=== PATIENT | female | born 1985 | race Caucasian/White ===

== ENCOUNTER 2022-03-02 21:20 | Inpatient (IN) | payer OTHER, SELFPAY ==
[2022-03-02] VITALS (9 sets, daily range): BP systolic 130–168; BP diastolic 62–85; PULSE 82–111; O2SAT 98; BMI 47.7
[2022-03-02] MEDS: Lactated Ringers 1,000 ML 200 ML IV (21:30)
[2022-03-02 22:07] LABS: Absolute Lymphocyte Count 1.32 X10^3/uL (0.83-4.51); Absolute Neutrophil Count 7.3 X10^3/uL (2.0-7.7); Basophil# 0.03 X10^3/uL; Basophil% 0.3 % (0-1); Eosinophil# 0.01 X10^3/uL; Eosinophils% 0.1 % (0-5); Hematocrit 31.1 % (37-47); Hemoglobin 10.5 g/dL (12.0-15.0); Lymphocyte # 1.32 X10^3/ul (0.83-4.51); Mean Corp Hgb Conc 33.8 g/dL (32-36); Mean Corpuscular Hgb 32.1 pg (27.0-32.0); Mean Corpuscular Volume 95.1 fL (81-99); Mean Platelet Vol. 11.7 fl (6.2-12.0); Monocyte# 0.69 X10^3/uL; Monocyte% 7.3 % (0-10); NRBC Flagged by Analyzer 0 % (0-5); Neutrophil # 7.34 X10^3/uL (2.7-7.7); Neutrophil % 77.6 % (47-70); Platelet Count 216 K/mm3 (150-450); RBC Distribution Width CV 13.5 % (11.6-14.6); RBC Distribution Width SD 46.3 fl (35.1-43.9); Red Blood Count 3.27 M/mm3 (4.2-5.4); White Blood Count 9.5 K/mm3 (4.4-11.0)
[2022-03-02] MEDS: Escitalopram Oxalate 20 MG Tablet PO (22:11)
[2022-03-02 22:37] LABS: AST(SGOT) 17 U/L (15-37); Alanine Aminotransfer ALT/SGPT 22 U/L (13-56); Creatinine, Serum 0.56 mg/dL (0.55-1.02); EST Glomerular Filtration Rate 130 mL/min (>60); Est Glom Filt Rate - Afr Amer 158 mL/min (>60); Estimated Creatinine Clearance 100.72 ml/min; Uric Acid 4.1 mg/dL (2.6-6.0)
[2022-03-03] VITALS (48 sets, daily range): BP systolic 122–166; BP diastolic 58–91; PULSE 75–100; TEMP 36.6–37.6; O2SAT 97–100
[2022-03-03 00:12] LABS: Protein, Urine (Random) 36.2 mg/dL (<11.9); Protein:Creat Ratio 260 mg/g CRE (0-200)
[2022-03-03] MEDS: miSOPROStol 25 MCG TABLET PO ×2 (00:14→04:42)
[2022-03-03] MEDS: Lactated Ringers 1,000 ML 50 ML IV (05:08)
--- NOTE | 2022-03-03 06:08 | NURSING ---
0600 penicillin bag noted to be ripped at top off bag and leaking, current bag stopped and new bag to be sent by pharmacy to run at this time
[2022-03-03] MEDS: Labetalol 100 MG Tablet PO (06:46)
[2022-03-03] MEDS: busPIRone 5 MG Tablet PO (06:46)
--- NOTE | 2022-03-03 09:05 | PCM.HP.OB ---
HPI - General General Date of Admission: 03/02/22 Date of Service: 03/03/22 HPI Narrative RAJ LONDONO, is a 36 F who presents for induction. Maternal Data Information Final CLAUDE: 03/08/22 Gestational age: 39&2 PFSH [facility] Medical History (Updated 03/03/22 @ 18:[address] Shelbie Khoury MD) AMA (advanced maternal age) multigravida 35+ Anxiety Anxiety Asthma Group B streptococcal bacteriuria Hypothyroid Thyroid disorder Home Medications 1 tab PO/SL DAILY 03/02/22 [History Last Taken 03/01/22 21:30] Vitamin D3 50 mcg PO/SL DAILY 03/02/22 [History Last Taken 03/01/22 21:30] aspirin 81 mg tablet 81 mg PO DAILY 03/02/22 [History Last Taken 03/01/22 21:30] buspirone 5 mg tablet 50 mg PO DAILY 03/02/22 [History Last Taken 03/02/22 16:00] escitalopram oxalate 20 mg tablet (Lexapro) 20 mg PO DAILY 03/02/22 [History Last Taken 03/01/22 21:30] levothyroxine 25 mcg tablet (Synthroid) 25 mcg PO DAILY 03/02/22 [History Last Taken 03/02/22 06:00] Allergy/AdvReac Type Severity Reaction Status Date / Time No Known Allergies Allergy Verified 10/26/15 23:03 Surgical History no surgical history Social History Smoking Status: Never smoker History Elective abortions Hx Para 0 Spontaneous abortions Hx # Term Pregnancies Ectopic pregnancies Hx # Pregnancies Multiple births # of living children NST FHR Rate Baby A Baseline: 135 Variability:: Moderate Accelerations:: 15 x 15 NST Reactive:: Yes Uterine Activity:: Q6 min Vital Signs Vital Signs Vital Signs: 03/02/22 19:49 03/02/22 19:49 03/02/22 19:54 Temperature Temperature Source Pulse Rate 100 97 Blood Pressure BP Systolic BP Diastolic Pulse Ox 98 03/02/22 19:54 03/02/22 19:58 03/02/22 19:58 Temperature Temperature Source Pulse Rate 96 Blood Pressure 147/80 H BP Systolic 147 BP Diastolic 80 Pulse Ox 98 03/02/22 19:59 03/02/22 19:59 03/02/22 20:15 Temperature Temperature Source Pulse Rate 102 H Blood Pressure 145/78 H BP Systolic 145 BP Diastolic 78 Pulse Ox 98 03/02/22 20:15 03/02/22 20:29 03/02/22 20:29 Temperature Temperature Source Pulse Rate 105 H 111 H Blood Pressure 148/80 H BP Systolic 148 BP Diastolic 80 Pulse Ox 03/02/22 20:44 03/02/22 20:44 03/02/22 21:00 Temperature Temperature Source Pulse Rate 94 Blood Pressure 168/85 H 145/83 H BP Systolic 168 145 BP Diastolic 85 83 Pulse Ox 03/02/22 21:00 03/02/22 23:44 03/02/22 23:44 Temperature Temperature Source Pulse Rate 93 82 Blood Pressure 130/62 H BP Systolic 130 BP Diastolic 62 Pulse Ox 03/03/22 02:52 03/03/22 02:52 03/03/22 02:53 Temperature Temperature Source Pulse Rate 85 Blood Pressure 141/86 H BP Systolic 141 BP Diastolic 86 Pulse Ox 99 03/03/22 02:53 03/03/22 02:53 03/03/22 02:53 Temperature 98.3 F Temperature Source Temporal Pulse Rate 75 Blood Pressure BP Systolic BP Diastolic Pulse Ox 03/03/22 04:50 03/03/22 04:51 03/03/22 04:51 Temperature Temperature Source Temporal Pulse Rate 82 Blood Pressure BP Systolic BP Diastolic Pulse Ox 98 03/03/22 04:50 03/03/22 04:51 03/03/22 04:51 Temperature 98.2 F Temperature Source Pulse Rate 79 Blood Pressure 166/86 H BP Systolic 166 BP Diastolic 86 Pulse Ox 03/03/22 05:07 03/03/22 05:07 03/03/22 06:01 Temperature Temperature Source Pulse Rate 78 Blood Pressure 139/76 H 150/88 H BP Systolic 139 150 BP Diastolic 76 88 Pulse Ox 03/03/22 06:01 03/03/22 07:20 03/03/22 07:20 Temperature Temperature Source Pulse Rate 82 90 Blood Pressure 154/91 H BP Systolic 154 BP Diastolic 91 Pulse Ox 03/03/22 07:22 03/03/22 07:22 03/03/22 07:22 Temperature Temperature Source Temporal Pulse Rate 88 Blood Pressure BP Systolic BP Diastolic Pulse Ox 99 03/03/22 07:22 Temperature 98.8 F Temperature Source Pulse Rate Blood Pressure BP Systolic BP Diastolic Pulse Ox Weight Weight: 244 lb 6.4 oz Body Mass Index (BMI) 47.7 Physical Exam Const alert and oriented x3 General Appearance: cooperative Chest inspection of chest normal GI soft to palpation, non-tender and non-distended Inspection: gravid external exam normal Narrative: cvx - /-3, intracervical lockwood placed Labs Labs Labs: Blood Type A POSITIVE Antibody Screen NEGATIVE Hct 31.1 % (37-47) L Hgb 10.5 g/dL (12.0-15.0) L See [facility] H&P Assessment & Plan (1) AMA (advanced maternal age) multigravida 35+: COMMENT: 39&2 PLAN: Admit to L&D Induction of labor - s/p cytotec. Intracervical lockwood placed & start pitocin. GBS positive Pain - epidural as desired COVID negative EFW - less than 4500g, patient with adequate pelvis Elevated BP's - preE labs normal. Possible gestational hypertension vs anxiety. Will monitor. Routine care (2) Group B streptococcal bacteriuria: (3) Hypothyroid: (4) Anxiety:
[2022-03-03] MEDS: 0.9% Normal Saline Single 100 ML IV.SOLN. INTRA-UTER (09:06)
[2022-03-03] MEDS: Oxytocin 30 units/NS 500 ml 30 UNITS/500 ML IV.SOLN IV (09:25)
[2022-03-03] MEDS: LACTATED RINGERS 500 ML 999 ML IV (13:50)
[2022-03-03] MEDS: fentaNYL-bupivacaine (epidural) 100 ML BAG EPIDURAL ×2 (15:14→19:17)
--- NOTE | 2022-03-03 16:09 | PCM.PN.BLA ---
Progress Note At bedside to check pt. Cvx 60/-3, vertex, ballotable. Unable to AROM. Continue to titrate pitocin and continue with position changes. Dr. Shelbie Khoury updated.
[2022-03-03] MEDS: Lactated Ringers 1,000 ML 200 ML IV ×2 (18:01→23:32)
--- NOTE | 2022-03-03 18:47 | PN.OBGYN_ITS ---
Subjective Subjective Patient comfortable with epidural Objective Data Objective Data Vital Signs: Vital Signs Temp Pulse BP Pulse Ox 98.7 F 81 143/69 H 100 03/03/22 18:39 03/03/22 18:39 03/03/22 18:39 03/03/22 17:50 Weight: 244 lb 6.4 oz Body Mass Index (BMI) 47.7 Intake & Output: Intake and Output for Last 24 Hours 03/01/22 03/02/22 03/03/22 23:59 23:59 23:59 Intake Total 3773.99 / 3773.99 Output Total 400 / 400 Balance 3373.99 / 3373.99 Lab / Micro Data Result Diagrams: 03/02/22 21:50 03/02/22 22:00 Labs: Laboratory Results - last 24 hr 03/02/22 21:50: WBC 9.5, RBC 3.27 L, Hgb 10.5 L, Hct 31.1 L, MCV 95.1, MCH 32.1 H, MCHC 33.8, RDW Std Deviation 46.3 H, RDW Coeff of Cristal 13.5, Plt Count 216, MPV 11.7, Immature Gran % (Auto) 0.700, Neut % (Auto) 77.6 H, Lymph % (Auto) 14.0 L, [place] % (Auto) 7.3, Eos % (Auto) 0.1, Baso % (Auto) 0.3, Absolute Neuts (auto) 7.3, Absolute Lymphs (auto) 1.32, Nucleated RBC % 0 03/02/22 22:00: Blood Type A POSITIVE, Antibody Screen NEGATIVE 03/02/22 22:00: Creatinine 0.56, Estim Creat Clear Calc 100.72, Est GFR (MDRD) Af Amer 158, Est GFR (MDRD) Non-Af 130, Uric Acid 4.1, AST 17, ALT 22 03/02/22 23:35: U Random Total Protein 36.2 H, Urine Creatinine 139.00, Protein/Creatinin Ratio 260 H Micro: Microbiology 03/02/22 21:45 Nasal Secretion SARS-CoV-2 Antigen (Rapid) - Final Physical Exam Narrative: cvx - 4/70/-2, AROM clear fluid. FSE & IUPC placed. NST FHR Rate Baby A Baseline: 125 Variability:: Moderate Accelerations:: 15 x 15 Decelerations:: None Uterine Activity:: Q 3-4 minutes Assessment & Plan (1) AMA (advanced maternal age) multigravida 35+: COMMENT: 39&2 PLAN: Continue induction with pitocin S/p AROM BP's normal to mildly elevated - c/w gestational hypertension
[2022-03-03] MEDS: Escitalopram Oxalate 20 MG Tablet PO (21:16)
[2022-03-04] VITALS (37 sets, daily range): BP systolic 119–148; BP diastolic 58–77; PULSE 75–94; RESP 16–18; TEMP 36.6–37.5; O2SAT 98–100
[2022-03-04] MEDS: Ondansetron 4 MG/2 ML Vial IV (00:22)
[2022-03-04] MEDS: fentaNYL-bupivacaine (epidural) 100 ML BAG EPIDURAL ×3 (00:28→10:47)
[2022-03-04] MEDS: 0.9% Saline Lock 10 ML Syringe IV (03:13)
[2022-03-04] MEDS: Lactated Ringers 1,000 ML 200 ML IV ×2 (05:36→12:10)
--- NOTE | 2022-03-04 07:11 | PCM.PN.OB ---
Subjective Subjective Patient comfortable with epidural Objective Data Objective Data Vital Signs: Vital Signs Temp Pulse BP Pulse Ox 98.3 F 94 138/61 H 98 03/04/22 06:34 03/04/22 06:34 03/04/22 06:34 03/04/22 06:34 Weight: 244 lb 6.4 oz Body Mass Index (BMI) 47.7 Intake & Output: Intake and Output for Last 24 Hours 03/02/22 03/03/22 03/04/22 23:59 23:59 23:59 Intake Total 4918.79 / 4918.79 1183.87 / 1183.87 Output Total 650 / 650 1125 / 1125 Balance 4268.79 / 4268.79 58.87 / 58.87 Lab / Micro Data Result Diagrams: 03/02/22 21:50 03/02/22 22:00 Micro: Microbiology 03/02/22 21:45 Nasal Secretion SARS-CoV-2 Antigen (Rapid) - Final Physical Exam Narrative: cvx - 5/80/-1 NST FHR Rate Baby A Baseline: 145 Variability:: Moderate Accelerations:: 15 x 15 Decelerations:: Variable Uterine Activity:: Q2-4 minutes Assessment & Plan (1) AMA (advanced maternal age) multigravida 35+: COMMENT: 39&3 PLAN: Continue pitocin induction Plan of care discussed with patient & (2) Gestational hypertension: PLAN: Bp's normal to mild elevated No evidence preeclampsia
[2022-03-04] MEDS: 0.9% Normal Saline 100 ML IV.SOLN. 200 ML INTRA-UTER (08:50)
[2022-03-04] MEDS: Oxytocin 30 units/NS 500 ml 30 UNITS/500 ML IV.SOLN 334 UNITS IV (12:35)
--- NOTE | 2022-03-04 13:13 | EX.PCM.OBRPT ---
Maternal Data Information Final CLAUDE: 03/08/22 Gestational age: 39&3 [place] Doctor Who Attended Delivery: Deanna Garcia Vaginal Delivery Maternal Presentation Maternal Presentation: Medically Indicated Induction Type of Induction: Pitocin, Hurley Bulb, Amniotomy and Cytotec Medical Reason for Induction: - (Advanced maternal age) Operative Information Date of Procedure: 03/04/22 Pre-Operative Diagnosis: (1) Advanced maternal age (2) Obesity Post-Operative Diagnosis: Same Surgery / Procedure Performed: Vacuum Assisted Vaginal Delivery Type of Anesthesia: Epidural Drain: Hurley to straight drain Estimated Blood Loss: 350ml Findings Description of Procedure: Patient draped when C/C/+2 and having intermittent bradycardia. Patient verbally consented for vacuum delivery. head position had been recently assessed. Vacuum placed on head & position confirmed. With the next contraction and gentle pull of the vacuum descent occurred. Vacuum released and with the next contraction again placed on head & position confirmed. Another gentle pull and further descent occurred. Vacuum released. Second degree episiotomy cut. Vacuum placed on head & position confirmed. Patient pushed well to deliver the head with minimal use of the vacuum. head gently guided to allow delivery of anterior and posterior shoulders. No excess traction placed on head. Vacuum released. Total of 3 vacuum pulls with no pop-offs. Body delivered and 3VC clamped & cut in slightly delayed fashion. Placenta delivered with gentle traction and good uterine tone obtained. Presentation: ZACKARY Amniotic Membrane Rupture Type: Artificial Amniotic Fluid Description: Clear Placental Delivery Description: Expressed Placenta Disposition: [facility] Specimen(s) Removed: Placenta Cord Vessel Description: 3 Vessels Cord Entanglement: Around neck x 1, loose Nuchal Cord Compression: With compression Cord Gases: ABG and VBG Infant A Gender: Female (Letitia Newell) (1 minute): 7 (5 minute): 8 Delayed Cord Clamping: Yes Post Vaginal Delivery Medications Given After Delivery: IV Pitocin Episiotomy Description: 2nd degree (Repaired with 3-0 vicryl) Laceration: None Complication Complications: None
[2022-03-04] MEDS: Ibuprofen 600 MG Tablet PO (20:37)
[2022-03-04] MEDS: Escitalopram Oxalate 20 MG Tablet PO (23:43)
[2022-03-04] MEDS: Acetaminophen 500 MG Tablet 1000 MG PO (23:43)
[2022-03-05] VITALS (11 sets, daily range): BP systolic 133–163; BP diastolic 67–79; PULSE 72–88; RESP 16; TEMP 36.4–37; O2SAT 97–99
[2022-03-05] MEDS: Ibuprofen 600 MG Tablet PO ×3 (04:09→18:07)
[2022-03-05] MEDS: Levothyroxine 25 MCG TABLET PO (06:25)
[2022-03-05] MEDS: Acetaminophen 500 MG Tablet 1000 MG PO ×2 (06:25→18:07)
--- NOTE | 2022-03-05 12:13 | PCM.PN.OB ---
Subjective Subjective Pain controlled Objective Data Objective Data Vital Signs: Vital Signs Temp Pulse Resp BP Pulse Ox O2 Del Method 97.8 F 88 16 147/74 H 99 Room Air 03/05/22 08:18 03/05/22 08:18 03/05/22 08:18 03/05/22 08:18 03/04/22 12:29 03/05/22 08:18 Oxygen Delivery Method Room Air Weight: 244 lb 6.4 oz Body Mass Index (BMI) 47.7 Intake & Output: Intake and Output for Last 24 Hours 03/03/22 03/04/22 03/05/22 23:59 23:59 23:59 Intake Total 4918.79 / 4918.79 3603.37 / 3603.37 Output Total 650 / 650 1974 Balance 4268.79 / 4268.79 1628.37 / 1628.37 Lab / Micro Data Result Diagrams: 03/02/22 21:50 03/02/22 22:00 Micro: Microbiology 03/02/22 21:45 Nasal Secretion SARS-CoV-2 Antigen (Rapid) - Final ABG Data ABG results: ABG 03/04/22 12:52 Specimen Type Cancelled Sample Site Cancelled O2 % Cancelled Cord ABG pH Cancelled Cord ABG pCO2 Cancelled Cord ABG pO2 Cancelled Cord ABG HCO3 Cancelled Cord ABG Total CO2 Cancelled Cord ABG Base Excess Cancelled Cord ABG O2 Sat Cancelled Respiration Rate Cancelled O2 Delivery Device Cancelled Liter Flow Cancelled Minute Volume Cancelled Tidal Volume Cancelled Mean Airway Pressure Cancelled POC PEEP Cancelled Peak Inspir Pressure Cancelled POC Pressure Suppt Cancelled Pressure High Cancelled Pressure Low Cancelled Time High Cancelled Time Low Cancelled EPAP Cancelled IPAP Cancelled Crit Call To/Read Back Cancelled Blood Gas Notified Whom Cancelled Blood Gas Notified Time Cancelled Clinical Comments Cancelled Physical Exam Const alert, oriented x3 and no apparent distress HEENT normocephalic GI soft to palpation, non-tender and non-distended GI Narrative: fundus firm, mid & below umbilicus Extremity normal to inspection and no calf tenderness Assessment & Plan (1) Gestational hypertension: COMMENT: PPD#1 PLAN: Start nifedipine 30XL for mildly elevated BP Routine PP care Continue home meds for hypothyroid & anxiety
[2022-03-05] MEDS: NIFEdipine 30 MG Tablet PO (13:05)
[2022-03-05] MEDS: Labetalol 200 MG Tablet PO (18:06)
[2022-03-05 18:08] LABS: Hematocrit 26.6 % (37-47); Mean Corp Hgb Conc 33.8 g/dL (32-36); Mean Corpuscular Hgb 32.4 pg (27.0-32.0); Mean Corpuscular Volume 95.7 fL (81-99); Mean Platelet Vol. 11.2 fl (6.2-12.0); Platelet Count 150 K/mm3 (150-450); RBC Distribution Width CV 13.9 % (11.6-14.6); RBC Distribution Width SD 48.8 fl (35.1-43.9); Red Blood Count 2.78 M/mm3 (4.2-5.4); White Blood Count 7.8 K/mm3 (4.4-11.0)
[2022-03-05 18:26] LABS: AST(SGOT) 30 U/L (15-37); Alanine Aminotransfer ALT/SGPT 23 U/L (13-56); Creatinine, Serum 0.58 mg/dL (0.55-1.02); EST Glomerular Filtration Rate 126 mL/min (>60); Est Glom Filt Rate - Afr Amer 152 mL/min (>60); Estimated Creatinine Clearance 97.24 ml/min; Uric Acid 3.4 mg/dL (2.6-6.0)
[2022-03-05] MEDS: Escitalopram Oxalate 20 MG Tablet PO (22:12)
[2022-03-06 02:29] VITALS: BP 122/67; PULSE 86; RESP 16; TEMP 36.6; O2SAT 99
[2022-03-06 02:31] VITALS: BP 122/67; PULSE 84
[2022-03-06 06:20] VITALS: BP 150/72; PULSE 96
[2022-03-06 06:22] VITALS: BP 152/70; PULSE 96
[2022-03-06] MEDS: Levothyroxine 25 MCG TABLET PO (06:23)
[2022-03-06] MEDS: Labetalol 200 MG Tablet PO (06:23)
[2022-03-06] MEDS: Acetaminophen 500 MG Tablet 1000 MG PO (07:59)
[2022-03-06 08:12] VITALS: BP 130/68; PULSE 85; RESP 16; TEMP 36.7; O2SAT 98
[2022-03-06 08:13] VITALS: PULSE 90; O2SAT 98
[2022-03-06] MEDS: NIFEdipine 30 MG Tablet PO (10:04)
--- NOTE | 2022-03-06 10:19 | PN.OBGYN_ITS ---
Subjective Subjective Pain well controlled. Average lochia. Denies headache or visual changes. Objective Data Objective Data Vital Signs: Vital Signs Temp Pulse Resp BP Pulse Ox O2 Del Method 98.0 F 90 16 130/68 H 98 Room Air 03/06/22 08:12 03/06/22 08:13 03/06/22 08:12 03/06/22 08:12 03/06/22 08:13 03/06/22 08:12 Oxygen Delivery Method Room Air Weight: 110.858 kg Body Mass Index (BMI) 47.7 Intake & Output: Intake and Output for Last 24 Hours 03/04/22 03/05/22 03/06/22 23:59 23:59 23:59 Intake Total 3603.37 / 3603.37 Output Total 1974 / 1974 Balance 1628.37 / 1628.37 Lab / Micro Data Result Diagrams: 03/05/22 18:00 03/05/22 18:00 Labs: Laboratory Results - last 24 hr 03/05/22 18:00: WBC 7.8, RBC 2.78 L, Hgb 9.0 L, Hct 26.6 L, MCV 95.7, MCH 32.4 H , MCHC 33.8, RDW Std Deviation 48.8 H, RDW Coeff of Cristal 13.9, Plt Count 150, MPV 11.2 03/05/22 18:00: Creatinine 0.58, Estim Creat Clear Calc 97.24, Est GFR (MDRD) Af Amer 152, Est GFR (MDRD) Non-Af 126, Uric Acid 3.4, AST 30, ALT 23 Micro: Microbiology 03/02/22 21:45 Nasal Secretion SARS-CoV-2 Antigen (Rapid) - Final Physical Exam Const alert and no apparent distress Narrative: Fundus firm, below umbilicus. Assessment & Plan (1) Status post vacuum-assisted vaginal delivery: PLAN: day #2 status post vacuum-assisted vaginal delivery. Gestational hypertension. Blood pressure stable on blood pressure medications. Patient has ability to monitor blood pressures at home. Desires discharge home. Call or return if worsening blood pressures or other symptoms of severe preeclampsia. is doing well and ready for discharge home.
--- NOTE | 2022-03-06 10:21 | DS.PCM_ITS ---
Providers Date of Admission: 03/02/22 Primary Care Physician: Dr. Rey Torres DO Reason For Visit: VAGINAL DELIVERY Diagnosis Discharge Diagnosis (1) Status post vacuum-assisted vaginal delivery: Status: Acute Code(s): Z87.59 - Personal history of other complications of , childbirth and the puerperium Plan: day #2 status post vacuum-assisted vaginal delivery. Gestational hypertension. Blood pressure stable on blood pressure medications. Patient has ability to monitor blood pressures at home. Desires discharge home. Call or return if worsening blood pressures or other symptoms of severe preeclampsia. is doing well and ready for discharge home. Medications at Discharge Home Medications 1 tab PO/SL DAILY 03/02/22 Vitamin D3 50 mcg PO/SL DAILY 03/02/22 buspirone 5 mg tablet 50 mg PO DAILY 03/02/22 escitalopram oxalate 20 mg tablet (Lexapro) 20 mg PO DAILY 03/02/22 levothyroxine 25 mcg tablet (Synthroid) 25 mcg PO DAILY 03/02/22 labetalol 200 mg tablet 200 mg PO BID #60 tabs 03/06/22 nifedipine 30 mg tablet,extended release 24 hr 30 mg PO DAILY #30 tabs 03/06/22 Hospital Course Operations None Procedures None Summary of Care Provided Hospital Course: 36-year-old nulliparous patient presented for induction of labor on 03/02/2022 at 39 1/7. She underwent Cytotec cervical ripening followed by Hurley and Pitocin induction. She underwent a vacuum-assisted vaginal delivery on 03/04/2022. Her blood pressure is elevated after delivery. She was started on labetalol and nifedipine. By day #2 they were stable. She desired discharge home with close follow-up and surveillance. She had ability to monitor her blood pressures at home. She is to call with any symptoms or signs of severe preeclampsia Weight / BMI Weight Weight: 110.858 kg Body Mass Index (BMI) 47.7 ABG / Lab / Microbiology Data Result Diagrams: 03/05/22 18:00 03/05/22 18:00 Laboratory: Laboratory Results - last 24 hr 03/05/22 18:00: WBC 7.8, RBC 2.78 L, Hgb 9.0 L, Hct 26.6 L, MCV 95.7, MCH 32.4 H , MCHC 33.8, RDW Std Deviation 48.8 H, RDW Coeff of Cristal 13.9, Plt Count 150, MPV 11.2 03/05/22 18:00: Creatinine 0.58, Estim Creat Clear Calc 97.24, Est GFR (MDRD) Af Amer 152, Est GFR (MDRD) Non-Af 126, Uric Acid 3.4, AST 30, ALT 23 Microbiology: Microbiology 03/02/22 21:45 Nasal Secretion SARS-CoV-2 Antigen (Rapid) - Final D/C Instructions May resume sexual activity in: 6 weeks Please Follow Up With: Dixie Blakely MD When: Follow up with our office in 1-2 and 6 weeks or as needed. [phone] Meaningful Use Info Meaningful Use Diagnoses (Choose all that apply): None applicable Discharge Plan Admission Admit Date/Time: 03/02/22 21:20 Primary Reason for Your Visit: Vaginal delivery Attending Provider: Shelbie Khoury Primary Care Provider: Rey Torres Discharge Orders/Prescriptions Prescriptions: New nifedipine 30 mg Tablet Extended Release 24hr 30 mg PO DAILY Qty: 30 0RF labetalol 200 mg Tablet 200 mg PO BID Qty: 60 0RF Continued buspirone 5 mg Tablet 50 mg PO DAILY levothyroxine [Synthroid] 25 mcg Tablet 25 mcg PO DAILY escitalopram oxalate [Lexapro] 20 mg Tablet 20 mg PO DAILY 1 tab PO/SL DAILY Vitamin D3 50 mcg PO/SL DAILY Discontinued aspirin 81 mg Tablet 81 mg PO DAILY Referrals / Follow Up: Rey Torres DO [Primary Care Provider] - Disposition Disposition (needs filled in before D/C Order can be placed): Home, Self Care
== END 2022-03-06 11:15 | disposition home or self-care (01) | DRG 806 ==
LOC: WPOUT 21:24 → WP 21:24
PROVIDERS: Obstetrics & Gynecology; Admitting Provider Obstetrics & Gynecology; PCP Student in an Organized Health Care Education/Training Program; Visit Provider Obstetrics & Gynecology
DX: O13.4 Gestational [pregnancy-induced] hypertension without significant proteinuria, complicating childbirth (principal); Z37.0 Single live birth; O98.82 Other maternal infectious and parasitic diseases complicating childbirth; F41.9 Anxiety disorder, unspecified; J45.909 Unspecified asthma, uncomplicated; E03.9 Hypothyroidism, unspecified; B95.1 Streptococcus, group B, as the cause of diseases classified elsewhere; O99.344 Other mental disorders complicating childbirth; O99.52 Diseases of the respiratory system complicating childbirth; O99.284 Endocrine, nutritional and metabolic diseases complicating childbirth; Z79.899 Other long term (current) drug therapy; Z79.82 Long term (current) use of aspirin; O76 Abnormality in fetal heart rate and rhythm complicating labor and delivery; O70.1 Second degree perineal laceration during delivery; Z3A.39 39 weeks gestation of pregnancy
CPT/HCPCS: 59025; 59050; 82565; 82570; 84156; 84450; 84460; 84550; 85025; 85027; 86850; 86900; 86901; 87811; 99218; J7120; A4216; G0378; J2405